=== PATIENT | female | born 1980 | race Caucasian/White ===

== ENCOUNTER 2023-02-23 08:00 | Outpatient (CLI) | payer OTHER | END 2023-02-23 23:59 | disposition home or self-care (01) | LOC: LAB 08:00 | PROVIDERS: ATTEND Physician Assistant | DX: J02.9 Acute pharyngitis, unspecified (principal) | CPT/HCPCS: 87070 ==

== ENCOUNTER 2023-03-29 08:00 | Outpatient (CLI) | payer OTHER ==
--- NOTE | 2023-03-29 14:04 | XRAY Report ---
PROCEDURE: Finger(s) RT INDICATIONS: SPRAIN OF RIGHT MIDDLE FINGER TECHNIQUE: PA hand, 2 views of the middle finger acquired. COMPARISON: None. FINDINGS: Bones: Minimally displaced oblique intra-articular fracture is seen at the volar base of the 3rd mid dle phalanx. This is osseous structures otherwise intact. Minimal osteoarthrosis. Soft tissues: No suspicious soft tissue calcifications or masses. Mild soft tissue edema in the mi ddle finger. IMPRESSION: Small minimally displaced fracture at the volar base of the 3rd middle phalanx. Reviewed by: Poli Baker MD on 03/29/2023 2:02 PM PDT Approved by: Poli Baker MD on 03/29/2023 2:02 PM PDT Station ID: [id number]
== END 2023-03-29 23:59 | disposition home or self-care (01) ==
LOC: DI.S 08:00
PROVIDERS: ATTEND Physician Assistant Medical
DX: S62.602A Fracture of unspecified phalanx of right middle finger, initial encounter for closed fracture (principal)